=== PATIENT | male | born 1990 | race Caucasian/White ===

== ENCOUNTER → 2024-05-09 | Outpatient (CLI) | payer BC, SELFPAY ==
--- NOTE | 2024-05-09 09:54 | RAD_ITS ---
PROCEDURE: CERV SPINE 2 OR 3 VIEWS REASON FOR EXAM: RADICULOPATHY TECHNIQUE: 5 views of the cervical spine. COMPARISON: None. FINDINGS: Normal vertebral body heights. No visible fracture. Disc space heights are preserved. Normal alignment. Prevertebral soft tissues are unremarkable. RAD/Cerv Spine 2 or 3 Views IMPRESSION: NEGATIVE CERVICAL SPINE. If concern for disc pathology, consider MR Reading Location: [id number]
== END | disposition home or self-care (01) ==
LOC: MTRAD 09:53
PROVIDERS: PCP Family Medicine; Referring Provider Family Medicine; Visit Provider Family Medicine
DX: M54.12 Radiculopathy, cervical region (principal)
CPT/HCPCS: 72040